=== PATIENT | male | born 1940 | race Caucasian/White ===

== ENCOUNTER 2016-06-18 11:26 | Day surgery (SDC) | payer MEDICARE ==
[2016-06-18] MEDS ORDERED: PROPOFOL 10 MG/ML VIAL IV ONE ×2 (14:00→14:47)
[2016-06-18] MEDS ORDERED: LIDOCAINE 2% MDV (20MG/ML) 20ML VIAL IV ONE (14:47)
--- NOTE | 2016-06-21 08:20 | Operative Note ---
DATE OF SURGERY: 06/18/2016 SURGEON: Elana Roca MD OPERATION: ESOPHAGOGASTRODUODENOSCOPY. INDICATIONS: This is a 76-year-old male with a history of gastroesophageal reflux disease who presented for esophagogastroduodenoscopy. POSTOPERATIVE DIAGNOSES: 1. Normal esophagus with no strictures or any erythema or any ulcerations. 2. Diffuse gastritis. 3. Post-antrectomy. 4. Normal duodenum. ANESTHESIA: Sedation is per Anesthesia. Pulse oximetry was monitored throughout the procedure to maintain O2 saturation of 90% or greater. Supplemental oxygen was administered via nasal cannula. Cardiac and vital signs were monitored throughout the duration of the procedure, and they were stable. The procedure of esophagogastroduodenoscopy and risks and benefits of the procedure, including the risk of bleeding and perforation, among others, were explained to the patient who voiced understanding and desired to have the procedure done. Physical examination was performed, and the patient was found stable for sedation. PROCEDURE: The patient was placed in the left lateral position. Sedation was initiated. A plastic bite block was inserted into the oral cavity. The Olympus [id number] gastroscope was introduced into the oral cavity and advanced to the proximal esophagus without difficulty. The esophageal mucosa was carefully examined upon introduction of the gastroscope. The proximal, mid, and distal esophageal mucosa appeared normal. The gastroscope was then advanced into the stomach, and surveillance of the stomach revealed diffuse erythema along the gastric body and antrum but no ulcers were noted. The gastroscope was then advanced to the descending duodenum without difficulty. There appeared to be postsurgical changes including antrectomy. The descending duodenum appeared normal. The duodenal bulb was not identified. The gastroscope was then withdrawn while carefully examining the gastric and esophageal mucosa. No other lesions noted. Upon retroflexion, no other lesions were noted. Multiple duodenal and gastric biopsies were obtained. He remained with stable vital signs and was transferred to the recovery room. RECOMMENDATIONS: 1. He should continue on his proton pump inhibitors. 2. I would be happy to see him back as needed. Thank you for allowing me to participate in the care of your patient. Elana Roca MD CC: Dr. Ben Saldana [facility]
== END 2016-06-18 13:23 | disposition home or self-care (01) ==
LOC: HOP 11:26
PROVIDERS: ATTEND Internal Medicine Gastroenterology
DX: K21.9 Gastro-esophageal reflux disease without esophagitis (principal); K29.60 Other gastritis without bleeding; K44.9 Diaphragmatic hernia without obstruction or gangrene

== ENCOUNTER 2018-02-28 15:15 | Emergency (ER) | payer MEDICARE ==
--- NOTE | 2018-02-28 16:01 | Emergency Department Record ---
History of Present Illness - General Chief Complaint: General Stated Complaint: SOMETHING ON CARIODID STUDY Time Seen by Provider: 02/28/18 15:54 Source: Patient, Family Mode of arrival: Ambulatory Limitations: No limitations - History of Present Illness Initial Comments: The patient is here due to being told by his Direct Service Worker to go to the ER after having a Doppler test. The patient had a routine Doppler test at [facility] and a possible thrombus was found in the R jugular vein. Dr. Carroll then called him and told him to go directly to the ER. The patient denies any recent illnesses or injuries. He also denies any [place], trouble talking or swallowing, or any balance issues or focal weakness. MD Complaint: Other Onset/Timin -: Days(s) - Related Data Home Medications Medication Instructions Recorded Confirmed Last Taken Cetirizine HCl [Zyrtec] 10 mg PO DAILY 02/28/18 02/28/18 02/28/18 Allergies Allergy/AdvReac Type Severity Reaction Status Date / Time No Known Drug Allergies Allergy Unverified 10/17/17 11:22 Travel Screening - Travel/Exposure Within Last 30 Days Have you traveled within the last 30 days?: No - Travel/Exposure Within Last Year Have you traveled outside the [place] in the last year?: No - Additonal Travel Details Have you been exposed to anyone with a communicable illness?: No - Travel Symptoms Symptom Screening: None Review of Systems Constitutional: Denies: Chills, Fever Eyes: Denies: Eye discharge ENT: Denies: Congestion Respiratory: Denies: Cough, Dyspnea Cardiovascular: Denies: Arrhythmia Endocrine: Reports: Fatigue Past Medical History - SOCIAL HISTORY Smoking Status: Former smoker Alcohol Use: Rare Drug Use: Rare Drug Use Detail:: Marijuana, Other - RESPIRATORY Hx Respiratory Disorders: Yes Hx COPD: Yes - CARDIOVASCULAR Hx Cardio Disorders: No - NEURO Hx Neuro Disorders: Yes Hx Dizziness: Yes Comment:: extreme exhaustion per . - GI Hx GI Disorders: Yes Hx Abdominal Pain: Yes Hx Reflux: Yes Hx Ulcer: Yes (perforated ulcer-1981) - Hx Genitourinary Disorders: No - ENDOCRINE Hx Endocrine Disorders: No - MUSCULOSKELETAL Hx Musculoskeletal Disorders: Yes - PSYCH Hx Psych Problems: No - HEMATOLOGY/ONCOLOGY Hx Hematology/Oncology Disorders: No Family Medical History Any Significant Family History?: No Hx Heart Disease: Mother Hx Stroke: Father Physical Exam - General General Appearance: Alert, Oriented x3, Cooperative, No acute distress - Head Head exam: Atraumatic, Normocephalic, Normal inspection - Eye Eye exam: Normal appearance, PERRL, EOMI - ENT Throat exam: Normal inspection. negative: Tonsillar erythema, Tonsillar exudate - Neck Neck exam: Normal inspection, Full ROM. negative: Tenderness - Respiratory Respiratory exam: Normal lung sounds bilaterally. negative: Respiratory distress - Cardiovascular Cardiovascular Exam: Regular rate, Normal rhythm, Normal heart sounds - GI/Abdominal GI/Abdominal exam: Soft, Normal bowel sounds. negative: Tenderness - Extremities Extremities exam: Normal inspection, Full ROM, Normal capillary refill. negative: Tenderness - Neurological Neurological exam: Alert, Altered, Normal gait, Oriented X3. negative: Abnormal gait, Motor sensory deficit Course Vital Signs 02/28/18 02/28/18 15:24 15:35 Temperature 97.5 F L Pulse Rate 69 Respiratory 18 Rate Blood Pressure 116/72 Pulse Ox 95 - Reevaluation(s) Reevaluation #1: I did review the carotid report and it does appear the patient has a possible thrombus in his Jugular vein. I did discuss the case with Dr. Kelsie rudd [facility] and he would like the patient transferred to the ER at [facility] for an expedited workup. He advised against anticoagulation for now. I then did discuss the case with Dr. Jackson in the ER at [facility] and he did accept the patient in an ER to ER transfer. 02/28/18 17:09 Medical Decision Making - Data Complexity MDM Data: Labs Ordered and/or Reviewed - Lab Data Result diagrams: 02/28/18 16:25 02/28/18 16:25 Disposition Disposition: Transfer Clinical Impression: Jugular vein thrombosis, right Disposition: Acute Care Hospital Transfer Transfer To: [facility] ED Reason For Transfer: Vascular surgery Accepting Physician: Manuel. Time Discussed w/Accepting Physician: 17:11 Condition: (2) Stable Additional Instructions: Please go directly to the [facility] ER for further evaluation. Forms: Patient Portal Access Time of Disposition: 17:11 Quality - Quality Measures Quality Measures: N/A - Blood Pressure Screening View Details: Yes Does Patient Have Any of the Following: No Blood Pressure Classification: Pre-Hypertensive BP Reading Systolic Measurement: 124 Diastolic Measurement: 75 Screening for High Blood Pressure: < Pre-Hypertensive BP, F/U Documented > [ [id number]] Pre-Hypertensive Follow-up Interventions: Referral to alternative/primary care provider.
[2018-02-28 16:34] LABS: EOS % 3.5 % (0-6); HEMATOCRIT 45.1 % (42.0-52.0); HEMOGLOBIN 14.9 gm/dl (14.0-18.0); LYMPH % 29.1 % (16-45); MEAN CELL VOLUME 99.1 fl (81-97); MEAN CORPUSCULAR HEMOGLOBIN 32.7 pg (27-33); MEAN PLATELET VOLUME 9.2 fl (7.4-10.4); MONO % 11.4 % (0-9); PLATELET COUNT 222 K/uL (130-400); RED BLOOD COUNT 4.55 M/uL (4.40-5.70); WHITE BLOOD COUNT W/O DIFF 6.7 K/uL (4.2-12.2)
[2018-02-28 16:48] LABS: PARTIAL THROMBOPLASTIN TIME 30.1 SECONDS (24.5-39.1); PROTHROMBIN TIME (PATIENT) 10.4 SECONDS (9.5-12.1)
[2018-02-28 16:50] LABS: BLOOD UREA NITROGEN 12 mg/dL (8-23); CREATININE 1.1 mg/dL (0.7-1.2); EST GLOMERULAR FILTRATION RATE > 60 mL/min
[2018-02-28 16:53] LABS: GLUCOSE,RANDOM 123 mg/dL (74-109)
== END 2018-02-28 17:19 | disposition short-term general hospital (02) ==
LOC: ER 15:15
DX: I82.C11 Acute embolism and thrombosis of right internal jugular vein (principal); J44.9 Chronic obstructive pulmonary disease, unspecified; Z87.891 Personal history of nicotine dependence
CPT/HCPCS: 80048; 85025; 85610; 85730; 99284